=== PATIENT | female | born 1985 | race Caucasian/White ===

== ENCOUNTER 2023-12-11 15:06 | Emergency (ER) | payer SELFPAY ==
[2023-12-11] MEDS ORDERED: Ketorolac Tromethamine 30 MG (1 mL) VIAL ONE (15:58)
[2023-12-11] MEDS ORDERED: Ondansetron PF 4 MG/2 ML Vial ONE (15:58)
[2023-12-11 16:17] LABS: #Basophils 0.04 10x3/uL (0.0-0.2); %Basophils 0.3 % (0.0-1.0); %Eosinophils 0.3 % (0.0-10.0); %Lymphocytes 11.7 % (21.0-51.0); %Monocytes 6.7 % (0.0-10.0); %Neutrophils 80.7 % (42.0-75.0); Hematocrit 39.2 % (36.0-47.0); Hemoglobin 13.1 g/dL (12.0-16.0); Mean Corpuscular HGB CONC 33.4 g/dL (32.0-36.0); Mean Corpuscular Volume 95.6 fL (78.0-98.0); Mean Platelet Volume 11.6 fL (7.4-10.4); Platelet Count 197 10x3/uL (130-400); RBC Distribution Width 12.9 % (11.5-14.5)
[2023-12-11 16:25] LABS: BHCG - Serum Negative (NEGATIVE); Pregs Control Background? CLEAR/WHITE (CLR/WHITE); Pregs Control Bar Appear? YES (CONTROL BAR)
[2023-12-11 16:32] LABS: ALT (SGPT) 42 U/L (8-55); AST (SGOT) 102 U/L (5-34); Alkaline Phosphatase 60 U/L (40-110); Anion Gap 12 mmol/L (10-20); BUN (Urea Nitrogen) 9 mg/dL (7.0-18.7); Bilirubin, Total 0.8 mg/dL (0.2-1.2); Calc. Creatinine Clearance 0 mL/min (70-130); Calcium 9.2 mg/dL (7.8-10.44); Carbon Dioxide 26 mmol/L (22-29); Chloride 105 mmol/L (98-107); Estimated GFR 114; Globulin 3.1 g/dL (2.4-3.5); Glucose 81 mg/dL (70-105); Lipase 9 U/L (8-78); Potassium 3.7 mmol/L (3.5-5.1); Protein, Total 7.1 g/dL (6.0-8.3); Sodium 139 mmol/L (136-145)
[2023-12-11] MEDS ORDERED: Famotidine/PF 20 mg/2ml Vial ONE (16:33)
[2023-12-11 17:14] LABS: Bacteria/HPF None Seen HPF (None Seen); Bilirubin Negative (Negative); Blood, Urine Negative (Negative); CAUTI Indications for Culture Pelvic or flank pain; Clarity Clear (Clear); Glucose, Urine (Dipstick) Normal (Negative); Ketone, Urine 20 mg/dL (Negative); Leukocyte Negative Leu/uL (Negative); Nitrite Negative (Negative); Protein, Urine (Dipstick) Negative (Neg-Trace); RBC/HPF 0-3 HPF (0-3); Urobilinogen Normal mg/dL (Less than 2); WBC/HPF 0-3 HPF (0-3)
[2023-12-11 17:16] LABS: Urine Culture Reflex No No
[2023-12-11 18:34] LABS: Troponin I 0.018 ng/mL (< 0.028)
== END 2023-12-11 19:04 | disposition home or self-care (01) ==
LOC: ERS 15:06
DX: K25.9 Gastric ulcer, unspecified as acute or chronic, without hemorrhage or perforation (principal); F17.290 Nicotine dependence, other tobacco product, uncomplicated
CPT/HCPCS: 36415; 76705; 80053; 81001; 83690; 84484; 84703; 85025; 93005; 96361; 96374; 96375; J1885; J2405; J3490